=== PATIENT | female | born 1975 | race Native Hawaiian/Other Pacific Islander ===

== ENCOUNTER 2021-06-24 11:32 | Outpatient (CLI) | payer OTHER | END 2021-06-24 19:11 | disposition home or self-care (01) | LOC: US 11:32 | PROVIDERS: ATTEND Registered Nurse | DX: M79.89 Other specified soft tissue disorders (principal); M54.42 Lumbago with sciatica, left side; M79.605 Pain in left leg ==

== ENCOUNTER 2021-11-15 11:15 | Outpatient (CLI) | payer OTHER | END 2021-11-15 19:02 | disposition home or self-care (01) | LOC: CT 11:15 | PROVIDERS: ATTEND Psychiatry & Neurology Neurology | DX: G70.00 Myasthenia gravis without (acute) exacerbation (principal) ==